=== PATIENT | female | born 1990 | race Two or more races ===

== ENCOUNTER 2024-04-11 07:51 | Emergency (ER) | payer MEDICAID, OTHER ==
[~2024-04-11] VITALS: Ht 162.6 cm; Wt 80.0 kg
[2024-04-11 07:59] VITALS: BP 145/86; TEMP 37
[2024-04-11] MEDS ORDERED: DEXAMETHASONE 1MG TABLET PO ONE (08:30)
[2024-04-11] MEDS: IPRATROPIUM BROMIDE (0.02%) 0.5MG/2.5ML NEB HHN STA (08:55)
[2024-04-11] MEDS: ALBUTEROL (0.083%) 2.5MG/3ML NEB HHN SCH (08:57)
[2024-04-11 08:58] VITALS: PULSE 103; RESP 18; O2SAT 93
[2024-04-11] MEDS: ONDANSETRON 4MG ODT PO ONE (09:15)
[2024-04-11] MEDS: DEXAMETHASONE 4MG TABLET PO NR (09:15)
[2024-04-11] MEDS ORDERED: ONDA-239 PO (11:12)
== END 2024-04-11 11:42 | disposition home or self-care (01) ==
LOC: ER 07:51
DX: B34.9 Viral infection, unspecified (principal); Z20.822 Contact with and (suspected) exposure to COVID-19
CPT/HCPCS: 87804 ×2; 71045; 94640; 94070; 99291; 87426; J8540; Q0162; Z7610 ×3